=== PATIENT | female | born 1975 ===

== ENCOUNTER 2018-08-19 08:34 | Outpatient (CLI) | payer OTHER | END 2018-08-19 09:00 | disposition home or self-care (01) | LOC: NUCLEAR 08:34 | DX: E05.90 Thyrotoxicosis, unspecified without thyrotoxic crisis or storm (principal) | CPT/HCPCS: 78012; A9531 ==

== ENCOUNTER → 2018-09-16 | Outpatient (CLI) | payer OTHER | END | disposition home or self-care (01) | LOC: NUCLEAR 10:06 | DX: E05.90 Thyrotoxicosis, unspecified without thyrotoxic crisis or storm (principal) | CPT/HCPCS: 79005; A9517 ==